=== PATIENT | male | born 2000 | race African-American/Black ===

== ENCOUNTER 2020-06-30 10:37 | Emergency (ER) | payer OTHER ==
[~2020-06-30] VITALS: Ht 175.3 cm; Wt 71.8 kg
--- NOTE | 2020-06-30 11:25 | REP ---
INDICATION: deep laceration/middle finger COMPARISON: None. TECHNIQUE: AP, lateral, bilateral oblique views left 3rd digit. FINDINGS: Soft tissue injury consistent with laceration at the terminal tuft. The osseous structures and joint spaces are intact. There is no evidence for acute fracture or dislocation. IMPRESSION: Laceration and soft tissue injury involving the terminal tuft. No bony involvement noted. <Electronically signed by Galen oWody > 06/30/20 [id number]
[2020-06-30] MEDS ORDERED: BOOSTRIX/ADACEL VACCINE (DIPHTH/PERTUSS/ACELL/TETANUS) 0.5ML SYR IM ONE (11:30)
[2020-06-30] MEDS ORDERED: LIDOCAINE 1% MDV 20ML VIAL SC ONE (11:35)
[2020-06-30] MEDS ORDERED: CEPH500C PO (13:11)
[2020-06-30] MEDS ORDERED: CEPH500T PO (13:11)
[2020-06-30 13:18] VITALS: BP 134/75
== END 2020-06-30 13:21 | disposition home or self-care (01) ==
LOC: M ED 10:37
DX: S61.203A Unspecified open wound of left middle finger without damage to nail, initial encounter (principal); W26.8XXA Contact with other sharp object(s), not elsewhere classified, initial encounter; Y92.89 Other specified places as the place of occurrence of the external cause; Y99.0 Civilian activity done for income or pay